=== PATIENT | female | born 1985 | race African-American/Black ===

== ENCOUNTER 2017-03-05 12:08 | Emergency (ER) | payer MEDICAID ==
[~2017-03-05] VITALS: Ht 175.3 cm; Wt 80.0 kg
[~2017-03-05 12:08] MED LIST: ALBU17AE27; FLUT1DIS3 IH; IBUP-1547 PO; IRON-24 PO; PREN1TAB26 PO
[2017-03-05] MEDS ORDERED: HYDR25TA PO (12:12)
[2017-03-05] MEDS ORDERED: METHOCARBAMOL 500 MG TABLET PO ONE (14:00)
[2017-03-05] MEDS ORDERED: TraMADol HCL 50 MG TABLET PO ONE (14:00)
[2017-03-05 14:07] VITALS: BP 145/88
== END 2017-03-05 15:05 | disposition home or self-care (01) ==
LOC: EMS 12:09
DX: S40.011A Contusion of right shoulder, initial encounter (principal); I10 Essential (primary) hypertension; J45.909 Unspecified asthma, uncomplicated; Z91.010 Allergy to peanuts; W22.8XXA Striking against or struck by other objects, initial encounter; Y93.89 Activity, other specified; Y92.89 Other specified places as the place of occurrence of the external cause; Y99.8 Other external cause status
CPT/HCPCS: 99283

== ENCOUNTER 2018-05-29 14:29 | Emergency (ER) | payer MEDICAID ==
[~2018-05-29] VITALS: Ht 165.1 cm; Wt 88.6 kg
[~2018-05-29 14:29] MED LIST changes: -FLUT1DIS3 IH; +HYDR25TA PO; -IBUP-1547 PO; -IRON-24 PO; -PREN1TAB26 PO
[2018-05-29] MEDS ORDERED: PredniSONE 5 MG/5 ML SOLUTION UDCUP PO ONE (16:15)
[2018-05-29] MEDS ORDERED: DiphenhydrAMINE HCL 25 MG CAPSULE PO ONE (16:15)
[2018-05-29 17:01] VITALS: BP 135/90
== END 2018-05-29 17:05 | disposition home or self-care (01) ==
LOC: EMS 14:32
DX: L50.9 Urticaria, unspecified (principal); L20.9 Atopic dermatitis, unspecified; J45.909 Unspecified asthma, uncomplicated; I10 Essential (primary) hypertension; Z91.010 Allergy to peanuts
CPT/HCPCS: 99283; J7512

== ENCOUNTER 2021-01-06 12:02 | Emergency (ER) | payer MEDICAID ==
[~2021-01-06] VITALS: Ht 165.1 cm; Wt 76.4 kg
[~2021-01-06 12:02] MED LIST changes: -HYDR25TA PO; +HYDR25TA2 PO
[2021-01-06] MEDS ORDERED: ALBUTEROL SULFATE 2.5 MG/0.5 ML NEB SOLUTION NEB ONE (14:40)
[2021-01-06] MEDS ORDERED: ALBUTEROL SULFATE HFA 90 MCG/PUFF 8 GM INHALER IH ONE (14:45)
[2021-01-06] MEDS ORDERED: HYDROCHLOROTHIAZIDE 25 MG TABLET PO ONE (14:45)
[2021-01-06 15:05] VITALS: BP 150/97
== END 2021-01-06 15:26 | disposition home or self-care (01) ==
LOC: EMS 12:02
DX: J45.909 Unspecified asthma, uncomplicated (principal); I10 Essential (primary) hypertension; Z91.010 Allergy to peanuts
CPT/HCPCS: 94640; 99284; J3535; J7613; Z7502; Z7610

== ENCOUNTER 2021-01-27 13:14 | Emergency (ER) | payer MEDICAID ==
[~2021-01-27] VITALS: Ht 165.1 cm; Wt 77.3 kg
[2021-01-27 14:43] LABS: BASOPHILS % (AUTO) 0.7 % (0.0-2.0); EOSINOPHILS % (AUTO) 0.5 % (1.0-6.0); HEMATOCRIT 37.1 % (36-46); HEMOGLOBIN 11.7 g/dL (12.0-16.0); LYMPHOCYTES # (AUTO) 1.7 K/uL (1.0-4.8); LYMPHOCYTES % (AUTO) 26.2 % (22.0-44.0); MEAN CORPUSCULAR HEMOGLOBIN 22.5 pg (26.0-34.0); MEAN CORPUSCULAR HGB CONC 31.6 G/dL (31.0-37.0); MEAN CORPUSCULAR VOLUME 71 fL (80-100); MONOCYTES # (AUTO) 0.2 K/uL (0.1-1.0); MONOCYTES % (AUTO) 2.7 % (2.0-9.0); NEUTROPHILS # (AUTO) 4.5 K/uL (1.8-7.7); NEUTROPHILS % (AUTO) 69.9 % (40.0-70.0); PLATELET COUNT (AUTO) 190 K/uL (150-450); RED BLOOD CELL COUNT(AUTO) 5.21 MIL/uL (4.00-5.20)
[2021-01-27 14:54] LABS: CALCIUM, TOTAL 9.4 mg/dL (8.8-10.5); CARBON DIOXIDE 25 mmol/L (22-29); CHLORIDE 105 mmol/L (98-107); CREATININE 0.53 mg/dL (0.60-1.30); GLOMERULAR FILTR. RATE CALC > 60 mL/min (>60); GLUCOSE,RANDOM 112 mg/dL (70-110); UREA NITROGEN, BLOOD 10 mg/dL (7-18)
[2021-01-27 15:05] LABS: ALANINE AMINOTRANSFERASE 23 U/L (12-78); ALBUMIN 3.7 g/dL (3.4-5.0); ALKALINE PHOSPHATASE 61 U/L (46-116); ANION GAP 8 mmol/L (8-16); ASPARTATE AMINOTRANSFERASE 29 U/L (15-37); HCG,QUANTITATIVE 1 mIU/mL (0-6); LIPASE 25 U/L (73-393); POTASSIUM 5.4 mmol/L (3.5-5.1); SODIUM SERUM 138 mmol/L (136-145); TOTAL PROTEIN, SERUM 8.1 g/dL (6.4-8.2)
[2021-01-27] MEDS ORDERED: TraMADol HCL 50 MG TABLET PO ONE (15:30)
[2021-01-27 15:57] LABS: APPEARANCE,URINE CLOUDY (CLEAR); BILIRUBIN,URINE NEGATIVE (NEGATIVE); GLUCOSE, URINE (UA) NEGATIVE (NEGATIVE); KETONES,URINE NEGATIVE (NEGATIVE); LEUKOCYTE ESTERASE ,URINE NEGATIVE (NEGATIVE); NITRATE,URINE NEGATIVE (NEGATIVE); OCCULT BLOOD,URINE NEGATIVE (NEGATIVE); PROTEIN,URINE NEGATIVE (NEGATIVE); UROBILINOGEN,URINE 0.2 mg/dL (<=1.0)
[2021-01-27 16:09] VITALS: BP 137/95
== END 2021-01-27 16:36 | disposition home or self-care (01) ==
LOC: EMS 13:15
DX: G89.29 Other chronic pain (principal); J45.909 Unspecified asthma, uncomplicated; I10 Essential (primary) hypertension; Z87.42 Personal history of other diseases of the female genital tract; Z76.0 Encounter for issue of repeat prescription; Z90.710 Acquired absence of both cervix and uterus; Z91.010 Allergy to peanuts
CPT/HCPCS: 80053; 81003; 83690; 84702; 85025; 99283

== ENCOUNTER 2021-02-28 11:41 | Emergency (ER) | payer MEDICAID ==
[~2021-02-28] VITALS: Ht 165.1 cm; Wt 77.3 kg
[2021-02-28] MEDS ORDERED: ACET-2247 PO (11:48)
[2021-02-28] MEDS ORDERED: PredniSONE 20 MG TABLET PO ONE (12:45)
[2021-02-28 13:20] LABS: COVID AG,FIA SOURCE NASOPHARYNGEAL
[2021-02-28] MEDS: IPRATROPIUM BROMIDE 0.5 MG/2.5 ML NEB SOLUTION NEB ONE ×2 (13:51→13:59)
[2021-02-28] MEDS: ALBUTEROL SULFATE 2.5 MG/0.5 ML NEB SOLUTION NEB ONE ×2 (13:51→13:59)
[2021-02-28 14:00] LABS: INFLUENZA TYPE A NEGATIVE FOR TYPE A (NEGATIVE); INFLUENZA TYPE B NEGATIVE FOR TYPE B (NEGATIVE)
[2021-02-28] MEDS ORDERED: ALBUTEROL SULFATE HFA 90 MCG/PUFF 8 GM INHALER IH ONE (14:15)
[2021-02-28 14:30] VITALS: BP 134/89
== END 2021-02-28 15:27 | disposition home or self-care (01) ==
LOC: EMS 11:41
DX: U07.1 COVID-19 (principal); J45.909 Unspecified asthma, uncomplicated
CPT/HCPCS: 71046; 87426; 87804; 94640; 99284; J7512; J3535; J7613

== ENCOUNTER 2021-04-02 11:50 | Emergency (ER) | payer MEDICAID ==
[~2021-04-02] VITALS: Ht 167.6 cm; Wt 81.8 kg
[~2021-04-02 11:50] MED LIST changes: +ACET-2247 PO; -HYDR25TA2 PO
[2021-04-02] MEDS ORDERED: HYDR25TA2 PO (11:58)
[2021-04-02] MEDS ORDERED: IBUPROFEN 600 MG TABLET PO ONE (13:15)
[2021-04-02] MEDS ORDERED: ALBU8HFA IH (13:22)
[2021-04-02 15:00] VITALS: BP 133/72
[2021-04-02] MEDS ORDERED: HYDROCODONE/ACETAMINOPHEN 5-325 MG TABLET PO ONE (15:30)
== END 2021-04-02 15:50 | disposition home or self-care (01) ==
LOC: EMS 11:50
DX: N63.0 Unspecified lump in unspecified breast (principal); D17.1 Benign lipomatous neoplasm of skin and subcutaneous tissue of trunk; J45.909 Unspecified asthma, uncomplicated; I10 Essential (primary) hypertension; F41.9 Anxiety disorder, unspecified; Z90.710 Acquired absence of both cervix and uterus; Z91.010 Allergy to peanuts
CPT/HCPCS: 71250; 99284; Z7502; Z7610

== ENCOUNTER 2021-05-28 12:36 | Emergency (ER) | payer MEDICAID ==
[~2021-05-28] VITALS: Ht 165.1 cm; Wt 81.0 kg
[~2021-05-28 12:36] MED LIST changes: -ALBU17AE27; +ALBU8HFA IH; +HYDR25TA2 PO
[2021-05-28] MEDS ORDERED: ALBUTEROL SULFATE 2.5 MG/0.5 ML NEB SOLUTION NEB ONE (14:00)
[2021-05-28] MEDS ORDERED: PredniSONE 20 MG TABLET PO ONE (14:00)
[2021-05-28] MEDS ORDERED: ALBUTEROL SULFATE HFA 90 MCG/PUFF 8 GM INHALER IH ONE (14:00)
[2021-05-28] MEDS ORDERED: IPRATROPIUM BROMIDE 0.5 MG/2.5 ML NEB SOLUTION NEB ONE (14:00)
[2021-05-28 14:13] VITALS: BP 131/75
== END 2021-05-28 14:14 | disposition home or self-care (01) ==
LOC: EMS 12:36
DX: J45.909 Unspecified asthma, uncomplicated (principal)
CPT/HCPCS: 94640; 99283; J7512; J3535

== ENCOUNTER 2021-07-26 12:40 | Emergency (ER) | payer MEDICAID ==
[~2021-07-26] VITALS: Ht 172.7 cm; Wt 81.8 kg
[2021-07-26 13:16] VITALS: BP 143/76
[2021-07-26] MEDS ORDERED: GUAI-487 PO (14:57)
[2021-07-26] MEDS ORDERED: BENZ-70 PO (14:57)
[2021-07-26] MEDS ORDERED: IPRAHFA IH (14:57)
[2021-07-26] MEDS ORDERED: ALBU8.5H8 IH (14:57)
[2021-07-27] MEDS ORDERED: ALBU8HFA IH (09:45)
[2021-07-27] MEDS ORDERED: IPRAHFA IH (09:47)
[2021-07-27] MEDS ORDERED: GUAI-487 PO (10:55)
[2021-07-27] MEDS ORDERED: BENZ-70 PO (10:56)
== END 2021-07-26 15:33 | disposition home or self-care (01) ==
LOC: EMS 12:44
DX: J45.909 Unspecified asthma, uncomplicated (principal); Z20.822 Contact with and (suspected) exposure to COVID-19; Z91.010 Allergy to peanuts
CPT/HCPCS: 93005; 99284; U0003; Z7502